=== PATIENT | male | born 1940 | race Caucasian/White ===

== ENCOUNTER → 2017-09-12 | Outpatient (CLI) | payer MEDICARE, BC ==
--- NOTE | 2017-09-12 12:59 | CARD ---
MR#: [id number] Date of Study: 09/12/2017 Ordering Physician: SHILO RUSSO, Referring Physician: SHILO RUSSO, Tech: RUSS Bey APPROVED REPORT EXAM: Two-dimensional and M-mode echocardiogram with Doppler and color Doppler. Other Information Quality : Average INDICATION Pre-Chemo Evaluation 2D DIMENSIONS Left Atrium(2D)4.4 (1.6-4.0cm)IVSd0.8 (0.7-1.1cm) Aortic Root(2D)3.8 (2.0-3.7cm)LVDd4.7 (3.9-5.9cm) LVOT Diameter2.0 (1.8-2.4cm)PWd0.9 (0.7-1.1cm) LVDs3.3 (2.5-4.0cm)FS (%) 31.1 % SV60.8 mlLVEF(%)58.8 (>50%) Aortic Valve AoV Peak Shane.195.9cm/sAoV VTI38.9cm AO Peak GR.15.4mmHgLVOT Peak Shane.65.0cm/s AO Mean GR.9mmHgAVA (VMAX)1.06cm2 AI P 1/2 Btpq562ci Mitral Valve MV E Tfedarjv14.9cm/sMV DECEL AIDU117xo MV A Bmhvzqrv33.7cm/sE/A Ratio0.5 LEFT VENTRICLE The left ventricle is normal size. There is normal left ventricular wall thickness. The left ventricu lar systolic function is normal and the ejection fraction is within normal range. The Ejection Fracti on is 55-60%. There is normal LV segmental wall motion. RIGHT VENTRICLE The right ventricle is normal size. There is normal right ventricular wall thickness. The right ventr icular systolic function is normal. ATRIA The left atrium size is normal. The right atrium size is normal. The interatrial septum is intact wit h no evidence for an atrial septal defect or patent foramen ovale as noted on 2-D or Doppler imaging. AORTIC VALVE The aortic valve is trileaflet. The aortic valve is mildly thickened. Doppler and Color Flow revealed trace aortic regurgitation. There is no significant aortic valvular stenosis. MITRAL VALVE There is no evidence of mitral valve prolapse. There is no mitral valve stenosis. Doppler and Color-f low revealed trace to mild mitral regurgitation. TRICUSPID VALVE Doppler and Color Flow revealed trace tricuspid regurgitation. There is no tricuspid valve stenosis. PULMONIC VALVE The pulmonic valve is not well visualized. Doppler and Color Flow revealed trace pulmonic valvular re gurgitation. There is no pulmonic valvular stenosis. GREAT VESSELS The aortic root is mildly dilated. (3.8 cm) The IVC is normal in size and collapses >50% with inspira tion. PERICARDIAL EFFUSION There is no pleural effusion. There is no evidence of significant pericardial effusion. Critical Notification Critical Value: No <Conclusion> The left ventricle is normal size. The left ventricular systolic function is normal and the ejection fraction is within normal range. The Ejection Fraction is 55-60%. There is no significant aortic valvular stenosis. Doppler and Color Flow revealed trace aortic regurgitation. Doppler and Color-flow revealed trace to mild mitral regurgitation. Doppler and Color Flow revealed trace tricuspid regurgitation. There is no evidence of significant pericardial effusion. Signed by : Eladio Rangel MD Electronically Approved : 09/12/2017 12:59:41
== END | disposition home or self-care (01) ==
LOC: ECHO 07:57
PROVIDERS: ATTEND Internal Medicine Hematology & Oncology
DX: C76.8 Malignant neoplasm of other specified ill-defined sites (principal); I08.3 Combined rheumatic disorders of mitral, aortic and tricuspid valves
CPT/HCPCS: 93306

== ENCOUNTER 2019-04-11 18:00 | Emergency (ER) | payer MEDICARE, BC ==
[~2019-04-11] VITALS: Ht 177.8 cm; Wt 88.0 kg
--- NOTE | 2019-04-11 18:22 | RAD ---
Exam: CT head INDICATION: Diaphoretic, loss of consciousness TECHNIQUE: Sequential axial images through the head were obtained without the administration of IV contrast. Comparisons: None FINDINGS: No focal parenchymal lesion or hemorrhage is identified. There is no midline shift or sulcal effacement. Minimal patchy hypodensities in the periventricular white matter. Stout-white distinction is preserved. The ventricular system is within normal limits without compression hydrocephalus. The basal cisterns are well maintained. The visualized portions of the paranasal sinuses and mastoid air cells are well-pneumatized. No acute fractures. IMPRESSION: Findings a small vessel ischemic change without acute intracranial abnormality. If there are persistent concerns for acute ischemia MRI is recommended. Exposure: One or more of the following in the visualized dose reduction techniques were utilized for this examination: 1. Automated exposure control 2. Adjustment of the MA and/or KV according to patient size Use of iterative of reconstructive technique FOR INTERNAL CODING PURPOSES Critical result: Findings discussed with TIARA STUBBS at 04/11/2019 6:18 PM. RESULT CODE: (C) Electronically signed by: Dalia Boss MD (04/11/2019 6:19 PM) [facility]
[2019-04-11 18:41] LABS: BASO # 0.1 x10^3/uL (0.0-0.2); BASO % 1 % (0-3); EOS # 0.5 x10^3/uL (0.0-0.7); EOS % 3 % (0-3); HEMOGLOBIN 10.9 g/dL (13.0-17.5); LYMPH # 5.2 x10^3/uL (1.0-4.8); LYMPH % 28 % (24-48); MEAN CORPUSCULAR HEMOGLOBIN 32 pg (25-35); MEAN CORPUSCULAR HGB CONC 33 g/dL (31-37); MEAN CORPUSCULAR VOLUME 96 fL (79-100); MONO # 1.9 x10^3/uL (0.0-1.1); MONO % 10 % (0-9); NEUT % 59 % (31-73); PLATELET COUNT 150 x10^3/uL (140-400); RED BLOOD COUNT 3.42 x10^6/uL (4.30-5.70); RED CELL DISTRIBUTION WIDTH 17.5 % (11.5-14.5); WHITE BLOOD COUNT 18.7 x10^3/uL (4.0-11.0)
--- NOTE | 2019-04-11 18:45 | PHYS DOC ---
Past History Past Medical History: A-Fib, Cancer, GERD Past Surgical History: No Surgical History Alcohol Use: None Drug Use: None Adult General Chief Complaint Chief Complaint: MECHANICAL FALL HPI HPI 78-year-old male presents via EMS from mechanical fall. The patient fell in the hallway at home. His heard him hit the floor. When she went in and he looked like he had fallen hard. He had an abrasion on the top of his head on the right side. He lost consciousness. When the patient came to, he was not making a lot of sense. EMS found him to be repeating himself. He became very diaphoretic while loading into the ambulance. He was awake but did not appear aware of his surroundings. The patient tells me he doesn't remember anything until part of the ride here in the ambulance. He does not know why he fell. He was feeling a little fatigued earlier today but nothing severe. He denies nausea, vomiting, chest pain, shortness of breath. He has a history of esophageal and gastric cancer. His last chemotherapy dose was last week. He did not drink very much water today. Review of Systems Review of Systems Constitutional: Denies fever or chills [] Eyes: Denies change in visual acuity, redness, or eye pain [] HENT: Denies nasal congestion or sore throat [] Respiratory: Denies cough or shortness of breath [] Cardiovascular: No additional information not addressed in HPI [] GI: Denies abdominal pain, nausea, vomiting, bloody stools or diarrhea [] : Denies dysuria or hematuria [] Musculoskeletal: Denies back pain or joint pain [] Integument: abrasion head [] Neurologic: Syncope, headache. Denies focal weakness or sensory changes [] Endocrine: Denies polyuria or polydipsia [] All other systems were reviewed and found to be within normal limits, except as documented in this note. Allergies Allergies Allergies Coded Allergies Type Severity Reaction Last Updated Verified No Known Drug Allergies 04/11/19 No Physical Exam Physical Exam Constitutional: Well developed, well nourished, no acute distress, diaphoretic, non-toxic appearance. [] HENT: Normocephalic, atraumatic, bilateral external ears normal, oropharynx moist, no oral exudates, nose normal. [] Eyes: PERRLA, EOMI, conjunctiva normal, no discharge. [] Neck: Normal range of motion, no tenderness, supple, no stridor. [] Cardiovascular:Heart rate regular rhythm, no murmur [] Lungs & Thorax: Bilateral breath sounds clear to auscultation [] Abdomen: Bowel sounds normal, soft, no tenderness, no masses, no pulsatile masses. [] Skin: Abrasion on the top of the scalp[] Back: No tenderness, no CVA tenderness. [] Extremities: No tenderness, no cyanosis, no clubbing, ROM intact, no edema. [] Neurologic: Alert and oriented X 3, normal motor function, normal sensory function, no focal deficits noted. [] Psychologic: Affect normal, judgement normal, mood normal. [] Current Patient Data Vital Signs Vital Signs Date Time Temp Pulse Resp B/P (MAP) Pulse Ox O2 Delivery O2 Flow Rate FiO2 04/11/19 18:27 98.1 68 16 98 Room Air EKG EKG Initial EKG: Sinus tachycardia, rate 102, normal axis, no ST elevations or depressions. Repeat EKG: Sinus rhythm, rate 91, normal axis, no ST elevations or depressions.[] Radiology/Procedures Radiology/Procedures [] Impressions: Exam: CT head INDICATION: Diaphoretic, loss of consciousness TECHNIQUE: Sequential axial images through the head were obtained without the administration of IV contrast. Comparisons: None FINDINGS: No focal parenchymal lesion or hemorrhage is identified. There is no midline shift or sulcal effacement. Minimal patchy hypodensities in the periventricular white matter. Stout-white distinction is preserved. The ventricular system is within normal limits without compression hydrocephalus. The basal cisterns are well maintained. The visualized portions of the paranasal sinuses and mastoid air cells are well-pneumatized. No acute fractures. IMPRESSION: Findings a small vessel ischemic change without acute intracranial abnormality. If there are persistent concerns for acute ischemia MRI is recommended. Exposure: One or more of the following in the visualized dose reduction techniques were utilized for this examination: 1. Automated exposure control 2. Adjustment of the MA and/or KV according to patient size Use of iterative of reconstructive technique FOR INTERNAL CODING PURPOSES Critical result: Findings discussed with TIARA STUBBS at 04/11/2019 6:18 PM. RESULT CODE: (C) Electronically signed by: Ruthy Mcneal MD (04/11/2019 6:19 PM) [facility] Exam: CT cervical spine without contrast INDICATION: Fall TECHNIQUE: Sequential axial images through the cervical spine obtained without IV contrast. Sagittal and coronal reformatted images were reconstructed from the axial data and reviewed. Comparisons: CT head same day FINDINGS: There is straightening of cervical spine which may be positional. Vertebral body heights are well-maintained. Osseous fusion of posterior elements of C2-C3 on the left. Fracture to the cervical spine is not identified. 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 Bilateral facet arthropathy is noted through the cervical spine greatest on the left at C3-C4 and C4-C5. Visualized paraspinal soft tissues are unremarkable. IMPRESSION: Negative CT C-spine for acute traumatic injury. Spondylotic changes described above. Exposure: One or more of the following in the visualized dose reduction techniques were utilized for this examination: 1. Automated exposure control 2. Adjustment of the MA and/or KV according to patient size 3. Use of iterative of reconstructive technique Electronically signed by: Ruthy Mcneal MD (04/11/2019 6:49 PM) [facility] DICTATED AND SIGNED BY: RUTHY MCNEAL MD DATE: 04/11/19 1849 CC: TIARA STUBBS DO; ESSENCE SPENCE MD ~ Course & Med Decision Making Course & Med Decision Making Pertinent Labs and Imaging studies reviewed. (See chart for details) The patient originally had a head CT ordered as a code stroke. This was done because the patient was repeating the same phrases over and over. He was also very diaphoretic. This is a head CT was done, his pulmonary evaluation showed no focal deficits. The code stroke was canceled. Patient was in a cervical collar. I palpated his cervical spine and he had no bony tenderness. I removed the cervical collar and he did not have any symptoms with range of motion. His cervical spine CT was negative for acute findings. Patient's workup is pending. The patient's labs are significant for hemoglobin of 10.9. I have no previous for comparison. He has an elevated white count. Again I have no previous for comparison. After the patient went to the restroom, he appeared to have seizure- like activity and began vomiting up coffee grounds and blood. This seizure episode lasted about 45 seconds. No interventions were given and the patient stopped seizing. He appeared to lost bladder. The patient does not have a history of gastric ulcers or hematemesis, but did have gastric cancer. His cancer care is at [facility]. I have paged the neurologist to discuss the patient. I discussed the patient with Dr. Garcia who recommended loading him with 500 of Keppra. I also discussed the patient with Dr. Clarke, GI, who agreed with 80mg of protonix and admission to the ICU for observation. I spoke with Dr. De Oliveira and she has septa the patient for admission and transfer to the ICU at [facility]. Will go by ambulance. 67 minutes of critical care time was spent on this patient exclusive of other billable procedures. [] Dragon Disclaimer Dragon Disclaimer This electronic medical record was generated, in whole or in part, using a voice recognition dictation system. Departure Departure: Impression: Primary Impression: Syncope and collapse Additional Impressions: Hematemesis Seizure Disposition: XFER SHT-TRM HOSP Condition: GUARDED Referrals: ESSENCE SPENCE MD (PCP) Problem Qualifiers Additional Impressions: Hematemesis Nausea presence: with nausea Qualified Codes: K92.0 - Hematemesis TIARA STUBBS DO Apr 11, 2019 18:45
[2019-04-11 18:48] LABS: ALBUMIN 3.1 g/dL (3.4-5.0); CALCIUM 8.5 mg/dL (8.5-10.1); CREATININE 1.3 mg/dL (0.7-1.3); GFR 53.5; TOTAL PROTEIN 6.2 g/dL (6.4-8.2)
--- NOTE | 2019-04-11 18:52 | RAD ---
Exam: CT cervical spine without contrast INDICATION: Fall TECHNIQUE: Sequential axial images through the cervical spine obtained without IV contrast. Sagittal and coronal reformatted images were reconstructed from the axial data and reviewed. Comparisons: CT head same day FINDINGS: There is straightening of cervical spine which may be positional. Vertebral body heights are well-maintained. Osseous fusion of posterior elements of C2-C3 on the left. Fracture to the cervical spine is not identified. 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 Bilateral facet arthropathy is noted through the cervical spine greatest on the left at C3-C4 and C4-C5. Visualized paraspinal soft tissues are unremarkable. IMPRESSION: Negative CT C-spine for acute traumatic injury. Spondylotic changes described above. Exposure: One or more of the following in the visualized dose reduction techniques were utilized for this examination: 1. Automated exposure control 2. Adjustment of the MA and/or KV according to patient size 3. Use of iterative of reconstructive technique Electronically signed by: Dalia Boss MD (04/11/2019 6:49 PM) [facility]
[2019-04-11] MEDS ORDERED: PANTOPRAZOLE IV 40 MG VIAL. IVP ONE (19:30)
[2019-04-11 19:31] LABS: % BANDS 16 % (0-9); % EOS 0 % (0-5); % LYMPHS 29 % (24-48); % MONOS 5 % (0-10); % SEGS 41 % (35-66)
[2019-04-11 19:32] LABS: % ATYL 8 % (0-0); % BASOS 1 % (0-3); ANISOCYTOSIS SLIGHT; PLT ESTIMATE ADEQUATE (ADEQUATE)
--- NOTE | 2019-04-11 19:49 | RAD ---
CHEST AP ONLY History: Fall Comparison: None. Findings: No consolidation or pleural effusion. Normal heart size. Left chest wall port. No pneumothorax. Impression: 1. No acute cardiopulmonary process. Electronically signed by: Marcel Cope DO (04/11/2019 7:46 PM) [facility]
[2019-04-11] MEDS ORDERED: levETIRAcetam 500 MG/5 ML VIAL IV ONE (21:59)
[2019-04-11] MEDS ORDERED: IV NORMAL SALINE 100ML 100 ML ONE (21:59)
[2019-04-11 22:09] VITALS: BP 102/45
--- NOTE | 2019-04-11 23:30 | EKG ---
[address] [address] Test Date: 2019-04-11 Test Time: 18:16:31 Pat Name: ASTRID LICEA Department: Room: Gender: M [employer]el Dipper: [place] : 1940 Requested By: TIARA STUBBS Order Number: [id number] Reading MD: Measurements Intervals [place] Rate: 102 P: 8 [place]: 172 QRS: 28 QRSD: 96 T: 42 QT: 336 QTc: 442 Interpretive Statements SINUS TACHYCARDIA COMPLEX(ES) WITH ABERRANT INTRAVENTRICULAR CONDUCTION QRS(T) CONTOUR ABNORMALITY CONSIDER ANTEROSEPTAL MYOCARDIAL DAMAGE CONSISTENT WITH INFERIOR INFARCT PROBABLY OLD ABNORMAL ECG RI6.01 No previous ECG available for comparison
== END 2019-04-11 22:29 | disposition short-term general hospital (02) ==
LOC: ER 18:00
DX: S00.01XA Abrasion of scalp, initial encounter (principal); R55 Syncope and collapse; K92.0 Hematemesis; R56.9 Unspecified convulsions; I48.91 Unspecified atrial fibrillation; K21.9 Gastro-esophageal reflux disease without esophagitis; W18.09XA Striking against other object with subsequent fall, initial encounter; Y93.89 Activity, other specified; Y92.89 Other specified places as the place of occurrence of the external cause; Y99.8 Other external cause status
CPT/HCPCS: 36415; 70450; 71045; 72125; 80053; 82947; 84484; 85007; 85025; 85610; 85730; 93005; 96365; 96375; 99291; C9113; J1953